=== PATIENT | female | born 1990 ===

== ENCOUNTER 2016-08-20 09:22 | Emergency (ER) | payer MEDICAID ==
[2016-08-20 09:22] VITALS: BMI 36.3
[2016-08-20 09:52] VITALS: BP 125/74; PULSE 78; RESP 18; TEMP 97.8; O2SAT 98
--- NOTE | 2016-08-20 10:45 | ED PDOC ---
HPI: Allergic Reaction Time Seen by Provider: 08/20/16 10:12 Chief Complaint (Nursing): Abnormal Skin Integrity Chief Complaint (Provider): Rash History Per: Patient History/Exam Limitations: no limitations Onset/Duration Of Symptoms: Days (x3) Current Symptoms Are (Timing): Still Present Possible Cause: Unknown Associated Symptoms: Skin Rash, Swelling Home/EMS Treatment: Benadryl Severity: Mild Additional Complaint(s): Patient is a 25 year old female presenting to the ED complaining of rash x3 days. Patient reports worsening rash to face, arm, and legs. Patient reports swollen face last night and shows pictures. Patient was given a Solumedral 60 mg shot at work. Patient last took 20 ml of Benadryl x3 hours ago with mild relief. Denies fever, cough, or sore throat. PMD: Cristo Castillo Past Medical History Reviewed: Historical Data, Nursing Documentation, Vital Signs Vital Signs: Last Vital Signs Temp 97.8 F 08/20/16 10:21 Pulse 78 08/20/16 10:21 Resp 18 08/20/16 10:21 BP 125/74 08/20/16 10:21 Pulse Ox 98 08/20/16 10:21 - Medical History PMH: No Chronic Diseases - Family History Family History: States: No Known Family Hx - Home Medications Home Medications: Ambulatory Orders Medication Instructions Recorded Cyclobenzaprine HCl [Flexeril] 10 mg PO TID #10 tab 08/30/14 Naproxen [Naprosyn] 500 mg PO Q12H #20 tab 08/30/14 Oxycodone HCl/Acetaminophen 1 tab PO PRN 08/30/14 [Percocet 325 mg-5 mg] Epinephrine HCl [Epipen 0.3 mg IM ONCE #1 unit 08/20/16 Auto-Injector] Prednisone [Deltasone] 40 mg PO DAILY #10 tablet 08/20/16 - Allergies Allergies/Adverse Reactions: Allergies Allergy/AdvReac Type Severity Reaction Status Date / Time No Known Allergies Allergy Verified 08/20/16 10:20 Review of Systems ROS Statement: Except As Marked, All Systems Reviewed And Found Negative Constitutional: Negative for: Fever ENT: Negative for: Throat Pain Respiratory: Negative for: Cough Skin: Positive for: Rash, Other (swelling) Physical Exam - Reviewed Nursing Documentation Reviewed: Yes Vital Signs Reviewed: Yes - Physical Exam Appears: Positive for: Well, Non-toxic, No Acute Distress Head Exam: Positive for: ATRAUMATIC, NORMAL INSPECTION, NORMOCEPHALIC Skin: Positive for: Rash (diffuse urticaria to bilateral legs no swelling) Eye Exam: Positive for: Normal appearance, EOMI ENT: Positive for: Normal ENT Inspection, Pharynx Is (clear). Negative for: Pharyngeal Erythema, Tonsillar Exudate Neck: Positive for: Normal, Painless ROM Cardiovascular/Chest: Positive for: Regular Rate, Rhythm. Negative for: Gallop , Murmur Respiratory: Positive for: Normal Breath Sounds, Other (speaking full sentences) . Negative for: Accessory Muscle Use, Rhonchi, Respiratory Distress Extremity: Positive for: Normal ROM Neurologic/Psych: Positive for: Alert, Oriented - Laboratory Results Result Diagrams: 08/20/16 10:42 08/20/16 11:00 - ECG O2 Sat by Pulse Oximetry: 98 (RA) Pulse Ox Interpretation: Normal Disposition - Clinical Impression Clinical Impression: Urticaria - Disposition Disposition: Routine/Home Disposition Time: 11:58 Condition: GOOD Additional Instructions: Follow-up with PMD within 2 days to ensure proteinuria resolves. Return to ED if condition worsens. Take full course of steroids. Use benadryl every 8 hours. Prescriptions: Prednisone [Deltasone] 40 mg PO DAILY #10 tablet Epinephrine HCl [Epipen Auto-Injector] 0.3 mg IM ONCE #1 unit Instructions: Urticaria (ED) Forms: [facility] ED School/Work Excuse Medical Decision Making Medical Decision Making: Time: 10:15 Impression: Allergic reaction Plan: CMP CBC Benadryl 25 mg PO Prednisone 60 PO UA POC UPreg Patient is well appearing and has no recent viral illness that she can remember. Denies new lotions, medications or other exposures. Likely post- viral or idiopathic. However, ua shows protenuria. Patient made aware of need to follow-up for resolution of proteinuria and further monitoring. She has normal renal function otherwise. She reports she can follow-up with PMD on wednesday (tmrw). She is well appearing with symptoms for the last 2 days. She has no upper airway involvement and is comfortable with normal vitals. She was instructed to follow-up with PMD and allergy/immunology with short steroid course. I do not foresee worsening of symptoms, but will give epi pen rx in case of anaphylatic reaction. Patient reports understanding. Scribe Attestation: Documented by Shweta Armas acting as a scribe for Josefina Pryor MD. MD Maloneyibjohn Attestation: All medical record entries made by the Scribe were at my direction and personally dictated by me. I have reviewed the chart and agree that the record accurately reflects my personal performance of the history, physical exam, medical decision making, and the department course for this patient. I have also personally directed, reviewed, and agree with the discharge instructions and disposition.
[2016-08-20 11:27] LABS: BASO % 0.4 % (0.0-2.0); EOS % 0.1 % (0.0-4.0); HEMATOCRIT 37.4 % (34.0-47.0); LYMPH # 2.4 K/uL (1.0-4.3); LYMPH % 22.4 % (20.0-40.0); MEAN CELL VOLUME 83.3 fl (81.0-99.0); MEAN CORPUSCULAR HEMOGLOBIN 26.7 pg (27.0-31.0); MEAN PLATELET VOLUME 8.1 fl (7.2-11.7); MONO # 0.5 K/uL (0.0-0.8); MONO % 4.4 % (0.0-10.0); NEUT # 7.9 K/uL (1.8-7.0); NEUT % 72.7 % (50.0-75.0); NRBC % 0.2 % (0.0-0.0); RED CELL DISTRIBUTION WIDTH 13.1 % (11.5-14.5); WHITE BLOOD COUNT 10.8 K/uL (4.8-10.8)
[2016-08-20 11:30] LABS: ALKALINE PHOSPHATASE 82 U/L (38-126); ALT/SGPT 42 U/L (9-52); AST/SGOT 23 U/L (14-36); BILIRUBIN,TOTAL 0.5 mg/dl (0.2-1.3); BLOOD UREA NITROGEN 10 mg/dl (7-17); CALCIUM 9.1 mg/dL (8.4-10.2); CARBON DIOXIDE 24 mmol/L (22-30); CHLORIDE 108 mmol/L (98-107); GFR AFRICAN-AMERICAN > 60; GLUCOSE,RANDOM 93 mg/dL (65-105); POTASSIUM 3.8 MMOL/L (3.6-5.0); SODIUM 145 mmol/l (132-148); TOTAL PROTEIN 8.3 G/DL (6.3-8.2)
[2016-08-20 11:39] LABS: RBC URINE 1 /hpf (0-3); URINE BILIRUBIN NEGATIVE (NEGATIVE); URINE BLOOD NEGATIVE (NEGATIVE); URINE COLOR YELLOW (YELLOW); URINE GLUCOSE (UA) NEG (Normal); URINE KETONE NEGATIVE (NEGATIVE); URINE LEUKOCYTE ESTERASE NEG Leu/uL (Negative); URINE PROTEIN 30 mg/dL (NEGATIVE); URINE UROBILINOGEN 0.2-1.0 mg/dL (0.2-1.0); WBC URINE 3 /hpf (0-5)
== END 2016-08-20 12:20 | disposition home or self-care (01) ==
LOC: H.ER 09:22
DX: T78.40XA Allergy, unspecified, initial encounter (principal); L50.9 Urticaria, unspecified